=== PATIENT | male | born 1940 | race Caucasian/White ===

== ENCOUNTER 2017-03-22 13:00 | Outpatient (RCR) | payer MEDICARE, BC | END 2017-03-23 | disposition home or self-care (01) | LOC: PTY 13:00 | DX: M51.36 Other intervertebral disc degeneration, lumbar region (principal); M54.2 Cervicalgia; G62.9 Polyneuropathy, unspecified; R27.0 Ataxia, unspecified; M79.606 Pain in leg, unspecified | CPT/HCPCS: 97110; 97140; 97162; G0283; G8978; G8979 ==

== ENCOUNTER 2017-04-21 13:00 | Outpatient (RCR) | payer MEDICARE, BC | END 2017-04-22 | disposition home or self-care (01) | LOC: PTY 13:00 | DX: M51.36 Other intervertebral disc degeneration, lumbar region (principal); M54.2 Cervicalgia; G62.9 Polyneuropathy, unspecified; R27.0 Ataxia, unspecified; M79.606 Pain in leg, unspecified; M48.06 Spinal stenosis, lumbar region | CPT/HCPCS: 97110; 97140; G0283 ==

== ENCOUNTER 2017-04-27 13:25 | Outpatient (RCR) | payer MEDICARE, BC | END 2017-05-23 | disposition home or self-care (01) | LOC: PTY 13:25 | DX: M51.36 Other intervertebral disc degeneration, lumbar region (principal); M54.2 Cervicalgia; G62.9 Polyneuropathy, unspecified; R27.0 Ataxia, unspecified; M48.061 Spinal stenosis, lumbar region without neurogenic claudication ==